=== PATIENT | male | born 1935 | race Hispanic/Latino ===

== ENCOUNTER 2018-08-04 09:20 | Emergency (ER) | payer OTHER ==
[2018-08-04 09:45] LABS: #Eosinphils 0.1 thou/uL (0.0-0.7); #Lymphocytes 1.3 thou/uL (1.20-3.40); #Monocytes 0.5 thou/uL (0.11-0.59); #Neutrophils 4.7 thou/uL (1.40-6.50); %Basophils 0.7 % (0.0-1.0); %Eosinophils 1.7 % (0.0-10.0); %Lymphocytes 19.1 % (21.0-51.0); %Monocytes 7.4 % (0.0-10.0); Hemoglobin 15.2 g/dL (14.0-18.0); Mean Corpuscular HGB CONC 34.1 g/dL (32.0-36.0); Mean Corpuscular Hemoglobin 32.8 pg (27.0-31.0); Mean Corpuscular Volume 96.2 fL (78.0-98.0); Mean Platelet Volume 7.6 fL (7.4-10.4); Platelet Count 173 thou/uL (130-400); RBC Distribution Width 11.3 % (11.5-14.5); Red Blood Cell (RBC) Count 4.63 mill/uL (4.70-6.10); White Blood Cell (WBC) Count 6.6 thou/uL (4.8-10.8)
[2018-08-04 10:05] LABS: ALT (SGPT) 11 U/L (8-55); AST (SGOT) 25 U/L (5-34); Albumin 4.3 g/dL (3.4-4.8); Alkaline Phosphatase 76 U/L (40-150); Anion Gap 15 mmol/L (10-20); BUN (Urea Nitrogen) 11 mg/dL (8.4-25.7); Bilirubin, Total 1.4 mg/dL (0.2-1.2); CK (CPK) 68 U/L (30-200); Calc. Creatinine Clearance 0 mL/min (70-130); Calcium 9.5 mg/dL (7.8-10.44); Carbon Dioxide 21 mmol/L (23-31); Chloride 106 mmol/L (98-107); Estimated GFR-MDRD 65; Globulin 3.7 g/dL (2.4-3.5); Glucose 154 mg/dL (83-110); Lipase 37 U/L (8-78); Magnesium 1.8 mg/dL (1.6-2.6); Potassium 3.5 mmol/L (3.5-5.1); Sodium 138 mmol/L (136-145)
[2018-08-04 10:09] LABS: CKMB 1.7 ng/mL (0-6.6); Troponin I Less than 0.010 ng/mL (< 0.028)
[2018-08-04 10:16] LABS: Bilirubin Negative (Negative); Blood, Urine Trace (Negative); Clarity CLEAR (Clear); Glucose, Urine (Dipstick) Negative (Negative); Leukocyte Negative (Negative); Nitrite Negative (Negative); Protein, Urine (Dipstick) Trace mg/dL (Neg-Trace)
[2018-08-04 10:19] LABS: Bacteria/HPF None Seen HPF (None Seen); Hyaline Casts/LPF 0-3 HYALINE CAST LPF (0-3 Hyaline); Pathc Cast-AUWi Flag 0.14 (0-2.49); Squamous Epithelial 0-3 HPF (0-3); WBC/HPF 0-3 HPF (0-3)
[2018-08-04 10:36] LABS: Transitional Epithelial 0-3 HPF (0-3)
== END 2018-08-04 11:51 | disposition home or self-care (01) ==
LOC: ERS 09:20
DX: I47.1 Supraventricular tachycardia (principal); R11.2 Nausea with vomiting, unspecified; I10 Essential (primary) hypertension; Z87.891 Personal history of nicotine dependence; Z86.73 Personal history of transient ischemic attack (TIA), and cerebral infarction without residual deficits
CPT/HCPCS: 80053; 81003; 81015; 82553; 83690; 83735; 84484; 85025; 93005

== ENCOUNTER 2019-06-22 12:41 | Outpatient (CLI) | payer MEDICARE | END 2019-06-22 12:42 | disposition home or self-care (01) | LOC: ULT 12:41 | PROVIDERS: ATTEND Internal Medicine Hematology & Oncology | DX: Z51.11 Encounter for antineoplastic chemotherapy (principal); C83.33 Diffuse large B-cell lymphoma, intra-abdominal lymph nodes; Z79.899 Other long term (current) drug therapy; I08.3 Combined rheumatic disorders of mitral, aortic and tricuspid valves | CPT/HCPCS: 93306 ==

== ENCOUNTER 2019-06-23 09:16 | Outpatient (CLI) | payer MEDICARE ==
--- NOTE | 2019-06-23 12:07 | PET ---
PET CT: HISTORY: Diffuse large B-cell lymphoma. Exam requested for initial staging. CORRELATION: CT chest, abdomen, and pelvis of 06/04/2019. TECHNIQUE: PET scan with CT attenuation correction was performed from the base of the brain through the proximal thighs following the intravenous administration [id number] in the right wrist. FINDINGS: There is intense hypermetabolic activity in the lymph nodes on both sides of the diaphragm including the lower neck, chest, abdomen, pelvis, and inguinal regions. Maximum SUVs include 23 in the left reardon praclavicular, 5.4 in the right supraclavicular, 20 in the posterior mediastinum, 16 in the right ret rocrural, 30 in the left paraaortic, 27 in the right paraaortic, 29 in the right common iliac, 25 in the left common iliac, 25 in the left pelvic, 27 in the left pubic, 16 in the left inguinal, and 7 in the left perineal lymph nodes. Increased uptake in the sacrum and bilateral iliac and left pubic bones is seen with a maximum SUV in the sacrum. Mild increased uptake in the rib fractures is present. No hypermetabolic pulmonary nodules, liver, or adrenal lesions are seen. There is physiologic activity in the GI- tracts and the visualized portions of the brain. The CT scan used for attenuation correction demonstrates small bilateral pleural effusions, left larg er than right. There is no evidence of ascites. IMPRESSION: Extensive viable lymphoma on both sides of the diaphragm ([place]-5). POS: [facility]
== END 2019-06-23 09:17 | disposition home or self-care (01) ==
LOC: PET 09:16
PROVIDERS: ATTEND Internal Medicine Hematology & Oncology
DX: C83.33 Diffuse large B-cell lymphoma, intra-abdominal lymph nodes (principal)
CPT/HCPCS: 78815; A9552